=== PATIENT | female | born 2000 | race Caucasian/White ===

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

== ENCOUNTER 2024-03-05 08:40 | Emergency (ER) | payer OTHER ==
[~2024-03-05] VITALS: Ht 149.9 cm; Wt 56.5 kg
[~2024-03-05 08:40] MED LIST changes: -ACET-8386 PO; +ACET-8905 PO
[2024-03-05 09:08] VITALS: BP 121/67; PULSE 85; RESP 19; TEMP 98.5; O2SAT 99
[2024-03-05 09:41] LABS: APPEARANCE,URINE CLOUDY (CLEAR); BILIRUBIN,URINE NEGATIVE (NEGATIVE); BLOOD, URINE 1+ (NEGATIVE); COLOR,URINE YELLOW (YELLOW); LEUKOCYTE ESTERASE ,URINE TRACE (NEGATIVE); NITRITE, URINE NEGATIVE (NEGATIVE); PH,URINE 5.5 (5.0-9.0); PROTEIN,URINE NEGATIVE (NEGATIVE); UGLUCOSE NEGATIVE (NEGATIVE); UROBILINOGEN,URINE 0.2 EU/dL (0.2 - 1)
[2024-03-05 09:59] LABS: BACTERIA,URINE >30 (MANY) /HPF (None Seen); RBC,URINE 11-20 (MOD) /HPF (0-5); SQUAMOUS EPITHELIAL CELL,UR 4-10 (MOD) /LPF (0-3 (FEW)); WBC,URINE 16-25 (MOD) /HPF (0-5); YEAST,URINE Few /HPF (None Seen)
[2024-03-05] MEDS ORDERED: LIDOCAINE MPF 1% 5 ML ONE ×2 (10:38→10:44)
[2024-03-05] MEDS ORDERED: cefTRIAXone 500 MG VIAL ONE ×2 (10:38→10:44)
[2024-03-05] MEDS: cefTRIAXone 500 MG in LIDOCAINE MPF 1% 1 ML IM ONE (10:49)
[2024-03-05] MEDS ORDERED: FLUC100T PO (10:57)
[2024-03-05] MEDS ORDERED: METR-435 PO (10:57)
[2024-03-05] MEDS ORDERED: DOXY-690 PO (10:57)
== END 2024-03-05 11:06 | disposition home or self-care (01) ==
LOC: MED 08:40
DX: N76.0 Acute vaginitis (principal); B96.89 Other specified bacterial agents as the cause of diseases classified elsewhere; N39.0 Urinary tract infection, site not specified; N72 Inflammatory disease of cervix uteri; B37.31 Acute candidiasis of vulva and vagina; Z79.1 Long term (current) use of non-steroidal anti-inflammatories (NSAID); Z79.899 Other long term (current) drug therapy
CPT/HCPCS: 81001; 81025; 87086; 87210; 96372; 99284; J0696; J2001

== ENCOUNTER 2024-03-22 10:43 | Emergency (ER) | payer OTHER ==
[~2024-03-22] VITALS: Ht 149.9 cm; Wt 57.6 kg
[~2024-03-22 10:43] MED LIST changes: +FLUC100T PO; +METR-435 PO
[2024-03-22 10:48] VITALS: BP 120/73; PULSE 89; RESP 18; TEMP 97.6; O2SAT 100
[2024-03-22 11:01] VITALS: O2SAT 100
[2024-03-22 11:34] LABS: APPEARANCE,URINE CLEAR (CLEAR); BILIRUBIN,URINE NEGATIVE (NEGATIVE); BLOOD, URINE 2+ (NEGATIVE); COLOR,URINE YELLOW (YELLOW); LEUKOCYTE ESTERASE ,URINE NEGATIVE (NEGATIVE); NITRITE, URINE NEGATIVE (NEGATIVE); PROTEIN,URINE NEGATIVE (NEGATIVE); UGLUCOSE NEGATIVE (NEGATIVE); UROBILINOGEN,URINE 0.2 EU/dL (0.2 - 1)
[2024-03-22 11:51] LABS: BACTERIA,URINE >30 (MANY) /HPF (None Seen); SQUAMOUS EPITHELIAL CELL,UR 4-10 (MOD) /LPF (0-3 (FEW)); WBC,URINE 0-5 /HPF (0-5)
[2024-03-22] MEDS: FLUCONAZOLE 100 MG TAB PO ONE (12:46)
== END 2024-03-22 12:47 | disposition home or self-care (01) ==
LOC: MED 10:43
DX: N76.0 Acute vaginitis (principal); Z79.899 Other long term (current) drug therapy
CPT/HCPCS: 36415; 81001; 81025; 87086; 87210; 99284

== ENCOUNTER 2024-05-06 18:20 | Emergency (ER) | payer OTHER ==
[~2024-05-06] VITALS: Ht 149.9 cm; Wt 56.8 kg
[2024-05-06 18:41] VITALS: BP 113/65; PULSE 85; RESP 18; TEMP 97.7; O2SAT 100
[2024-05-06 21:30] VITALS: BP 120/68; PULSE 87; RESP 18; TEMP 98; O2SAT 100
[2024-05-07] MEDS ORDERED: CEPH-588 PO (14:13)
[2024-05-07] MEDS ORDERED: PYR100 PO (14:13)
[2024-05-07] MEDS ORDERED: IBUP-2213 PO (14:13)
== END 2024-05-06 21:30 | disposition left against medical advice (07) ==
LOC: MED 18:20
DX: R39.15 Urgency of urination (principal); M54.50 Low back pain, unspecified; Z53.21 Procedure and treatment not carried out due to patient leaving prior to being seen by health care provider

== ENCOUNTER 2024-05-07 12:27 | Emergency (ER) | payer OTHER ==
[~2024-05-07] VITALS: Ht 149.9 cm; Wt 54.4 kg
[2024-05-07 12:39] VITALS: BP 120/63; PULSE 95; RESP 20; TEMP 98.2; O2SAT 100
[2024-05-07] MEDS ORDERED: CEPH-588 PO (14:13)
[2024-05-07] MEDS ORDERED: IBUP-2213 PO (14:13)
[2024-05-07] MEDS ORDERED: PYR100 PO (14:13)
[2024-05-07] MEDS ORDERED: cefTRIAXone 500 MG VIAL ONE (14:36)
[2024-05-07] MEDS ORDERED: LIDOCAINE MPF 1% 5 ML ONE (14:37)
[2024-05-07] MEDS: cefTRIAXone 500 MG in LIDOCAINE MPF 1% 1 ML IM ONE (14:39)
[2024-05-07 14:48] VITALS: BP 120/63; PULSE 95; RESP 20; TEMP 98.2; O2SAT 100
== END 2024-05-07 14:48 | disposition home or self-care (01) ==
LOC: MED 12:34
DX: R30.0 Dysuria (principal); R35.0 Frequency of micturition; L29.8 Other pruritus; R03.0 Elevated blood-pressure reading, without diagnosis of hypertension; Z79.1 Long term (current) use of non-steroidal anti-inflammatories (NSAID); Z79.2 Long term (current) use of antibiotics; Z79.899 Other long term (current) drug therapy
CPT/HCPCS: 81002; 81025; 96372; 99283; J0696; J2001